=== PATIENT | female | born 1970 | race Caucasian/White ===

== ENCOUNTER 2022-02-27 14:17 | Inpatient (IN) | payer MEDICARE, MEDICAID ==
[~2022-02-27] VITALS: Ht 165.1 cm; Wt 86.9 kg
[2022-02-27] MEDS ORDERED: LORazepam 2 MG/ML VIAL IM ONE (15:00)
[2022-02-27] MEDS ORDERED: DiphenhydrAMINE HCL 50 MG/ML VIAL IM ONE (15:00)
[2022-02-27] MEDS ORDERED: HALOPERIDOL LACTATE 5 MG/ML VIAL IM ONE (15:00)
[2022-02-27 17:19] LABS: BASOPHILS % (AUTO) 0.7 % (0.0-2.0); EOSINOPHILS % (AUTO) 1.7 % (1.0-6.0); HEMATOCRIT 42.9 % (36-46); HEMOGLOBIN 14.4 g/dL (12.0-16.0); LYMPHOCYTES # (AUTO) 2.4 K/uL (1.0-4.8); LYMPHOCYTES % (AUTO) 29.1 % (22.0-44.0); MEAN CORPUSCULAR HEMOGLOBIN 30.1 pg (26.0-34.0); MEAN CORPUSCULAR HGB CONC 33.7 G/dL (31.0-37.0); MEAN CORPUSCULAR VOLUME 89 fL (80-100); MONOCYTES # (AUTO) 0.6 K/uL (0.1-1.0); MONOCYTES % (AUTO) 7.6 % (2.0-9.0); NEUTROPHILS # (AUTO) 5.1 K/uL (1.8-7.7); NEUTROPHILS % (AUTO) 60.9 % (40.0-70.0); PLATELET COUNT (AUTO) 322 K/uL (150-450); RED BLOOD CELL COUNT(AUTO) 4.81 MIL/uL (4.00-5.20); RED CELL DISTRIBUTION WIDTH 13.7 % (11.5-14.5)
[2022-02-27 17:28] LABS: ANION GAP 6 mmol/L (8-16); CALCIUM, TOTAL 9.8 mg/dL (8.8-10.5); CARBON DIOXIDE 29 mmol/L (22-29); CHLORIDE 103 mmol/L (98-107); CREATININE 0.72 mg/dL (0.60-1.30); GLOMERULAR FILTR. RATE CALC > 60 mL/min (>60); GLUCOSE,RANDOM 96 mg/dL (70-110); POTASSIUM 3.7 mmol/L (3.5-5.1); SODIUM SERUM 138 mmol/L (136-145); UREA NITROGEN, BLOOD 16 mg/dL (7-18)
[2022-02-27 17:34] LABS: ALANINE AMINOTRANSFERASE 32 U/L (12-78); ALBUMIN 3.9 g/dL (3.4-5.0); ALKALINE PHOSPHATASE 150 U/L (46-116); ASPARTATE AMINOTRANSFERASE 37 U/L (15-37); BILIRUBIN,TOTAL 0.3 mg/dL (0.1-1.0)
[2022-02-27] MEDS ORDERED: RISP3TAB63 PO (18:58)
[2022-02-27 19:10] LABS: APPEARANCE,URINE CLEAR (CLEAR); BILIRUBIN,URINE NEGATIVE (NEGATIVE); GLUCOSE, URINE (UA) NEGATIVE (NEGATIVE); KETONES,URINE NEGATIVE (NEGATIVE); LEUKOCYTE ESTERASE ,URINE NEGATIVE (NEGATIVE); NITRATE,URINE NEGATIVE (NEGATIVE); OCCULT BLOOD,URINE NEGATIVE (NEGATIVE); PROTEIN,URINE NEGATIVE (NEGATIVE); SPECIFIC GRAVITIY, URINE 1.025 (1.003-1.030); UROBILINOGEN,URINE <=1.0 mg/dL (<=1.0)
[2022-02-27 19:26] LABS: COVID AG,FIA SOURCE NASAL SWAB
[2022-02-28] MEDS: LORazepam 2 MG TABLET PO PRN (11:23)
[2022-02-28] MEDS: HALOPERIDOL 5 MG TABLET PO PRN (11:23)
[2022-02-28 11:49] VITALS: BP 118/64
[2022-02-28] MEDS ORDERED: INFLUENZA VIRUS VACCINE QVS 2022-23 (6MO+)/PF 60 MCG/0.5 ML SYRINGE IM. ONE (12:15)
[2022-02-28 16:00] VITALS: BP 94/52
[2022-03-01 08:19] VITALS: BP 120/76
[2022-03-01 16:36] VITALS: BP 126/71
[2022-03-01] MEDS: OLANZapine 5 MG TABLET PO SCH (18:17)
[2022-03-01] MEDS ORDERED: GuaiFENesin/D-METHORPHAN [SUGAR-FREE] 200-20MG/10 ML SYRUP UDCUP PO PRN (20:30)
[2022-03-01] MEDS ORDERED: NICOTINE 14 MG/24 HOUR PATCH TD PRN (20:30)
[2022-03-01] MEDS ORDERED: PETROLATUM,WHITE 28 GM JELLY TP PRN (20:30)
[2022-03-01] MEDS ORDERED: MAGNESIUM HYDROXIDE SUSPENSION 30 ML UDCUP PO PRN (20:30)
[2022-03-01] MEDS ORDERED: CloNIDine HCL 0.1 MG TABLET PO PRN (20:30)
[2022-03-01] MEDS ORDERED: ALBUTEROL SULFATE HFA 90 MCG/PUFF 8 GM INHALER IH PRN (20:30)
[2022-03-01] MEDS ORDERED: DOCUSATE SODIUM 100 MG CAPSULE PO PRN (20:30)
[2022-03-01] MEDS ORDERED: ONDANSETRON HCL 4 MG TABLET PO PRN (20:30)
[2022-03-01] MEDS ORDERED: IBUPROFEN 400 MG TABLET PO PRN (20:30)
[2022-03-01] MEDS ORDERED: MAG HYDROX/AL HYDROX/SIMETH ES 30 ML SUSPENSION UDCUP PO PRN (20:30)
[2022-03-01] MEDS ORDERED: ACETAMINOPHEN 325 MG TABLET PO PRN (20:30)
[2022-03-01] MEDS ORDERED: LOPERAMIDE HCL 2 MG CAPSULE PO PRN (20:30)
[2022-03-02 08:00] VITALS: BP 128/76
[2022-03-02] MEDS: OLANZapine 5 MG TABLET PO SCH ×2 (08:14→16:43)
[2022-03-02 16:29] VITALS: BP 116/79
[2022-03-02] MEDS: HALOPERIDOL 5 MG TABLET PO PRN (20:18)
[2022-03-02] MEDS: LORazepam 2 MG TABLET PO PRN (20:18)
[2022-03-02] MEDS: ZOLPIDEM TARTRATE 10 MG TABLET PO PRN (21:24)
[2022-03-03] MEDS: OLANZapine 5 MG TABLET PO SCH ×2 (08:16→16:49)
[2022-03-03 09:41] VITALS: BP 150/95
[2022-03-03 17:12] VITALS: BP 126/78
[2022-03-03] MEDS: LORazepam 2 MG TABLET PO PRN (20:35)
[2022-03-03] MEDS: ZOLPIDEM TARTRATE 10 MG TABLET PO PRN (20:35)
[2022-03-03] MEDS: HALOPERIDOL 5 MG TABLET PO PRN (20:35)
[2022-03-04] MEDS: OLANZapine 5 MG TABLET PO SCH ×2 (08:24→16:25)
[2022-03-04 08:31] VITALS: BP 109/69
[2022-03-04 16:57] VITALS: BP 106/71
[2022-03-04] MEDS: ZOLPIDEM TARTRATE 10 MG TABLET PO PRN (21:11)
[2022-03-04] MEDS: HALOPERIDOL 5 MG TABLET PO PRN (21:11)
[2022-03-04] MEDS: LORazepam 2 MG TABLET PO PRN (21:11)
[2022-03-05 06:47] LABS: COVID AG,FIA SOURCE NASAL SWAB
[2022-03-05] MEDS: OLANZapine 5 MG TABLET PO SCH ×2 (08:08→16:21)
[2022-03-05 08:37] VITALS: BP 133/75
[2022-03-05 16:15] VITALS: BP 112/75
[2022-03-05 18:51] VITALS: BP 116/68
[2022-03-05] MEDS: LORazepam 2 MG TABLET PO PRN (20:46)
[2022-03-05] MEDS: ZOLPIDEM TARTRATE 10 MG TABLET PO PRN (21:44)
[2022-03-06 08:10] VITALS: BP 128/81
[2022-03-06] MEDS: OLANZapine 5 MG TABLET PO SCH ×2 (08:18→16:02)
[2022-03-06] MEDS: LORazepam 2 MG TABLET PO PRN (16:03)
[2022-03-06 16:16] VITALS: BP 126/86
[2022-03-07] MEDS: OLANZapine 5 MG TABLET PO SCH ×2 (08:46→16:03)
[2022-03-07 08:50] VITALS: BP 107/70
[2022-03-07 16:20] VITALS: BP 129/78
[2022-03-07 16:21] VITALS: BP 129/78
[2022-03-07] MEDS ORDERED: OLAN5TAB52 PO (17:14)
== END 2022-03-07 18:00 | disposition home or self-care (01) | DRG 885 ==
LOC: EMS 14:17 → 3EC 02-28 10:01
PROVIDERS: ADMIT Psychiatry & Neurology Child & Adolescent Psychiatry; ATTEND Psychiatry & Neurology Child & Adolescent Psychiatry
DX: F25.1 Schizoaffective disorder, depressive type (principal); F15.10 Other stimulant abuse, uncomplicated; F10.10 Alcohol abuse, uncomplicated; Y90.9 Presence of alcohol in blood, level not specified; Z20.822 Contact with and (suspected) exposure to COVID-19; F41.9 Anxiety disorder, unspecified; G47.00 Insomnia, unspecified; Z59.00 Homelessness unspecified; Z87.891 Personal history of nicotine dependence
CPT/HCPCS: 80053; 81003; 85025; 99285; G0480

== ENCOUNTER 2022-08-03 10:10 | Inpatient (IN) | payer MEDICARE, MEDICAID ==
[~2022-08-03] VITALS: Ht 165.1 cm; Wt 85.3 kg
[~2022-08-03 10:10] MED LIST: OLAN5TAB52 PO
[2022-08-03] MEDS ORDERED: LORazepam 2 MG TABLET PO PRN (11:45)
[2022-08-03] MEDS ORDERED: ZOLPIDEM TARTRATE 10 MG TABLET PO PRN (11:45)
[2022-08-03] MEDS ORDERED: HALOPERIDOL 5 MG TABLET PO PRN (11:45)
[2022-08-03 14:52] VITALS: BP 121/74
[2022-08-03 17:27] VITALS: BP 108/67
[2022-08-03] MEDS ORDERED: LOPERAMIDE HCL 2 MG CAPSULE PO PRN (22:30)
[2022-08-03] MEDS ORDERED: CloNIDine HCL 0.1 MG TABLET PO PRN (22:30)
[2022-08-03] MEDS ORDERED: DOCUSATE SODIUM 100 MG CAPSULE PO PRN (22:30)
[2022-08-03] MEDS ORDERED: ALBUTEROL SULFATE HFA 90 MCG/PUFF 8 GM INHALER IH PRN (22:30)
[2022-08-03] MEDS ORDERED: OMEPRAZOLE 20 MG CAPSULE PO PRN (22:30)
[2022-08-03] MEDS ORDERED: ONDANSETRON HCL 4 MG TABLET PO PRN (22:30)
[2022-08-03] MEDS ORDERED: BACITRACIN 28 GM OINTMENT TP PRN (22:30)
[2022-08-03] MEDS ORDERED: PETROLATUM,WHITE 28 GM JELLY TP PRN (22:30)
[2022-08-03] MEDS ORDERED: MAGNESIUM HYDROXIDE SUSPENSION 30 ML UDCUP PO PRN (22:30)
[2022-08-03] MEDS ORDERED: BENZOCAINE/MENTHOL LOZENGE PO PRN (22:30)
[2022-08-03] MEDS ORDERED: ACETAMINOPHEN 325 MG TABLET PO PRN (22:30)
[2022-08-04 08:08] VITALS: BP 104/65
[2022-08-04 20:24] VITALS: BP 106/69
[2022-08-05 07:50] LABS: BASOPHILS % (AUTO) 0.4 % (0.0-2.0); EOSINOPHILS % (AUTO) 2.6 % (1.0-6.0); HEMATOCRIT 44.6 % (36-46); HEMOGLOBIN 14.8 g/dL (12.0-16.0); LYMPHOCYTES # (AUTO) 2.4 K/uL (1.0-4.8); LYMPHOCYTES % (AUTO) 44.1 % (22.0-44.0); MEAN CORPUSCULAR HEMOGLOBIN 29.6 pg (26.0-34.0); MEAN CORPUSCULAR HGB CONC 33.1 G/dL (31.0-37.0); MEAN CORPUSCULAR VOLUME 90 fL (80-100); MONOCYTES # (AUTO) 0.5 K/uL (0.1-1.0); MONOCYTES % (AUTO) 9.6 % (2.0-9.0); NEUTROPHILS # (AUTO) 2.4 K/uL (1.8-7.7); NEUTROPHILS % (AUTO) 43.3 % (40.0-70.0); PLATELET COUNT (AUTO) 330 K/uL (150-450); RED BLOOD CELL COUNT(AUTO) 4.98 MIL/uL (4.00-5.20); RED CELL DISTRIBUTION WIDTH 13.4 % (11.5-14.5)
[2022-08-05 08:08] LABS: HEMOGLOBIN A1C 5.8 % (3.8-5.6)
[2022-08-05 08:18] VITALS: BP 122/83
[2022-08-05 08:19] LABS: ALANINE AMINOTRANSFERASE 22 U/L (12-78); ALBUMIN 3.8 g/dL (3.4-5.0); ALKALINE PHOSPHATASE 137 U/L (46-116); ANION GAP 10 mmol/L (8-16); ASPARTATE AMINOTRANSFERASE 28 U/L (15-37); BILIRUBIN,TOTAL 0.4 mg/dL (0.1-1.0); CALCIUM, TOTAL 9.4 mg/dL (8.8-10.5); CARBON DIOXIDE 28 mmol/L (22-29); CHLORIDE 102 mmol/L (98-107); CHOL/HDL RATIO 3.7 (3.9-5.7); CHOLESTEROL 205 mg/dL (131-200); CREATININE 0.53 mg/dL (0.60-1.30); FREE T4 (FREE THYROXINE) 0.78 ng/dL (0.76-1.46); GLOMERULAR FILTR. RATE CALC > 60 mL/min (>60); GLUCOSE,RANDOM 100 mg/dL (70-110); HCG,QUANTITATIVE 1 mIU/mL (0-6); HDL CHOLESTEROL 55 mg/dL (40-60); LDL CHOL (CALC.) 112 mg/dL (0-130); POTASSIUM 3.8 mmol/L (3.5-5.1); SODIUM SERUM 140 mmol/L (136-145); THYROID STIMULATING HORMONE 1.56 uIU/mL (0.36-3.74); TOTAL PROTEIN, SERUM 7.9 g/dL (6.4-8.2); TRIGLYCERIDES 190 mg/dL (15-150); UREA NITROGEN, BLOOD 18 mg/dL (7-18)
[2022-08-05 20:00] VITALS: BP 120/72
[2022-08-05] MEDS: RisperiDONE 2 MG TABLET PO SCH (20:36)
[2022-08-06 00:45] VITALS: BP 116/71
[2022-08-06] MEDS: IBUPROFEN 600 MG TABLET PO PRN (00:48)
[2022-08-06 08:03] VITALS: BP 109/81
[2022-08-06] MEDS: RisperiDONE 2 MG TABLET PO SCH ×2 (08:20→20:16)
[2022-08-06] MEDS: MAG HYDROX/AL HYDROX/SIMETH ES 30 ML SUSPENSION UDCUP PO PRN (18:48)
[2022-08-06 21:22] VITALS: BP 114/62
[2022-08-07] MEDS: MAG HYDROX/AL HYDROX/SIMETH ES 30 ML SUSPENSION UDCUP PO PRN ×2 (01:22→20:09)
[2022-08-07 04:42] VITALS: BP 139/84
[2022-08-07] MEDS: IBUPROFEN 600 MG TABLET PO PRN (04:43)
[2022-08-07 08:17] VITALS: BP 133/75
[2022-08-07] MEDS: RisperiDONE 2 MG TABLET PO SCH ×2 (08:27→20:09)
[2022-08-07 21:26] VITALS: BP 129/82
[2022-08-08] MEDS: RisperiDONE 2 MG TABLET PO SCH (08:00)
[2022-08-08 08:04] VITALS: BP 136/66
[2022-08-08 08:46] LABS: GLUCOMETER DEV NAME(LOC) POC.BV
[2022-08-08] MEDS ORDERED: DIVA-112 PO ×2 (14:54→15:15)
[2022-08-08] MEDS ORDERED: RISP2TAB86 PO (14:54)
[2022-08-08] MEDS ORDERED: RISP2TAB45 PO (15:16)
== END 2022-08-08 18:04 | disposition home or self-care (01) | DRG 885 ==
LOC: B2X 14:36
PROVIDERS: ADMIT Psychiatry & Neurology Psychiatry; ATTEND Psychiatry & Neurology Psychiatry
DX: F25.9 Schizoaffective disorder, unspecified (principal); F41.9 Anxiety disorder, unspecified; M54.9 Dorsalgia, unspecified; F32.A Depression, unspecified; I10 Essential (primary) hypertension; Z20.822 Contact with and (suspected) exposure to COVID-19; G47.00 Insomnia, unspecified; K59.00 Constipation, unspecified; Z79.899 Other long term (current) drug therapy
CPT/HCPCS: 80053; 80061; 80156; 83036; 84436; 84439; 84443; 84702; 85025; 86592; G0480